=== PATIENT | male | born 1955 | race Caucasian/White ===

== ENCOUNTER 2019-08-03 12:27 | Emergency (ER) | payer OTHER ==
[2019-08-03 12:34] VITALS: BP 145/82; PULSE 76; RESP 18; TEMP 97.9
--- NOTE | 2019-08-03 12:54 | ED ---
Fall HPI - General Chief Complaint: Fall Stated Complaint: [facility] - fall Time Seen by Provider: 08/03/19 12:36 Source: patient Mode of arrival: ambulatory - History of Present Illness Initial Comments: Patient is a 63-year-old male, presenting to the emergency department after falling at work today. 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 Patient states he fell on a cement slab. This happened approximately 2 hours prior to arrival. Patient states her abdominal fall he felt okay over the past hour he's been feeling increase in pain in his left side. Patient states it extends into his back a little bit. The pain is worsened with walking as well as with turning towards the left. Patient also has pain with deep breathing. He admits to history of appendectomy, no other abdominal surgeries. He denies hitting his head, lower external knee pain. He has no other injuries reported from his fall. He has no other complaints at this time. Upon arrival to the ER, his vital signs are stable. - Related Data Allergies Allergy/AdvReac Type Severity Reaction Status Date / Time No Known Allergies Allergy Verified 08/03/19 12:34 Review of Systems ROS Statement: Those systems with pertinent positive or pertinent negative responses have been documented in the HPI. ROS Other: All systems not noted in ROS Statement are negative. Past Medical History Past Medical History: No Reported History History of Any Multi-Drug Resistant Organisms: None Reported Past Surgical History: Appendectomy Past Psychological History: No Psychological Hx Reported Smoking Status: Current every day smoker Past Alcohol Use History: Occasional Past Drug Use History: None Reported General Exam - General Exam Comments Initial Comments: GENERAL: Well-appearing, well-nourished and in no acute distress. HEAD: Atraumatic, normocephalic. EYES: Pupils equal round and reactive to light, extraocular movements intact, sclera anicteric, conjunctiva are normal. ENT: TMs normal, nares patent, oropharynx clear without exudates. Moist mucous membranes. NECK: Normal range of motion, supple without lymphadenopathy or JVD. LUNGS: Breath sounds clear to auscultation bilaterally and equal. No wheezes rales or rhonchi. Mild pain with palpation of the left flank area, left ribs. There is no bruising to the area. HEART: Regular rate and rhythm without murmurs, rubs or gallops. ABDOMEN: Mild tenderness to the left upper quadrant. Soft, normoactive bowel sounds. No guarding, no rebound. No masses appreciated. : Deferred EXTREMITIES: Normal range of motion, no pitting or edema. No clubbing or cyanosis. NEUROLOGICAL: Cranial nerves II through XII grossly intact. Normal speech, normal gait. PSYCH: Normal mood, normal affect. SKIN: Warm, Dry, normal turgor, no rashes or lesions noted. Limitations: no limitations Course Vital Signs 08/03/19 12:27 Temperature 97.9 F Pulse Rate 76 Respiratory 18 Rate Blood Pressure 145/82 O2 Sat by Pulse 98 Oximetry Medical Decision Making - Medical Decision Making Patient is a 63-year-old male presenting with left-sided flank pain as well as left-sided abdominal pain after falling 3 feet off a ladder today. He landed on cement. There was no head injury, only complaint was left sided rib as well as left flank pain. With concern for possible kidney and/or spleen injury, a computed tomography scan of the abdomen was obtained. There were no acute abnormalities seen on CT. I discussed the patient that his symptoms are most likely related to contusion of the left side of the ribs, low back. Patient has continuously denied pain medication today. He is stable for discharge at this time. Patient is in agreement with this plan of care. He will continue to take Tylenol and/or Motrin at home as needed for discomfort as well as ice the area. Strict return parameters were discussed with the patient and he verbalized understanding. Case discussed with Dr. Chairez. Disposition Clinical Impression: Fall, Contusion of rib on left side Disposition: HOME SELF-CARE Condition: Stable Instructions (If sedation given, give patient instructions): Rib Contusion (ED) Additional Instructions: Please return to the Emergency Department if symptoms worsen or any other concerns. May take Tylenol and/or Motrin for symptom relief as well as ice to the area. Practice deep breathing. Follow up with PCP as needed. Is patient prescribed a controlled substance at d/c from ED?: No Referrals: Armida Samayoa, PAC [Primary Care Provider] - 1-2 days
--- NOTE | 2019-08-03 13:31 | CT ---
EXAMINATION TYPE: CT abdomen pelvis w con DATE OF EXAM: 08/03/2019 COMPARISON: None HISTORY: Fall today with Left sided injury CT DLP: 1285.7 mGycm CONTRAST: CT scan of the abdomen and pelvis is performed without Oral Contrast and with IV Contrast, patient in jected with 100 mL of Isovue 300. FINDINGS: LUNG BASES-: No visible nodule. No infiltrate. LIVER/GB: No calcified gallstones. No space occupying hepatic lesion. Biliary tree is of normal ca liber. PANCREAS: No inflammation. No distinct mass. SPLEEN: No splenic enlargement. No lesion seen. ADRENALS: No nodule. No thickening. KIDNEYS/BLADDER: No hydronephrosis. No nephrolithiasis. No distinct renal mass. Urinary bladder g rossly unremarkable. BOWEL: Normal appendix. Normal bowel caliber. No inflammation. GENITAL ORGANS: No gross abnormality. LYMPH NODES: No greater than 1cm abdominal or pelvic lymph nodes are appreciated. AORTA: No significant abnormality. OSSEOUS STRUCTURES: No significant abnormality is seen. OTHER: No significant additional abnormality is seen. IMPRESSION: 1. No acute abnormality identified at this time.
== END 2019-08-03 13:57 | disposition home or self-care (01) ==
LOC: EC 12:27
DX: S20.212A Contusion of left front wall of thorax, initial encounter (principal); F17.200 Nicotine dependence, unspecified, uncomplicated; W11.XXXA Fall on and from ladder, initial encounter; Y92.69 Other specified industrial and construction area as the place of occurrence of the external cause; Y99.0 Civilian activity done for income or pay
CPT/HCPCS: 74177; 99283; Q9967

== ENCOUNTER 2024-07-17 06:49 | Emergency (ER) | payer OTHER, MEDICARE ==
[2024-07-17 06:53] VITALS: TEMP 98
--- NOTE | 2024-07-17 07:05 | ED ---
SOB HPI - General Chief Complaint: Shortness of Breath Stated Complaint: TJ Time Seen by Provider: 07/17/24 06:53 Source: patient, RN notes reviewed Mode of arrival: ambulatory Limitations: no limitations - History of Present Illness Initial Comments: This is a 68 year old male who presents to the emergency department for shortness of breath and coughing. Reports coughing and congestion for the last 3-4 days. When he woke up this morning he felt like it was getting hard to breathe, prompting him to come here for evaluation. The cough and shortness of breathe are not worse in different positions or making it difficult for him to sleep. The cough is relatively nonproductive. Denies any chest pain. Reports having a fever a few days ago, however states that that has since resolved. He has had multiple sick contacts at work. MD Complaint: shortness of breath, cough - Related Data Previous Rx's Medication Instructions Recorded Albuterol Sulfate [Albuterol 1 - 2 puff PO Q4-6H PRN #8.5 gm 07/17/24 Sulfate Hfa] Benzonatate [Tessalon Perle] 200 mg PO TID PRN #20 capsule 07/17/24 Promethazine/Dextromethorphan 5 ml PO Q4-6H PRN #150 ml 07/17/24 [Promethazine-Dm 6.25-15 mg/5Ml] Allergies Allergy/AdvReac Type Severity Reaction Status Date / Time No Known Allergies Allergy Verified 07/17/24 06:53 Review of Systems ROS Statement: Those systems with pertinent positive or pertinent negative responses have been documented in the HPI. ROS Other: All systems not noted in ROS Statement are negative. Past Medical History Past Medical History: No Reported History History of Any Multi-Drug Resistant Organisms: None Reported Past Surgical History: Appendectomy Past Psychological History: No Psychological Hx Reported Smoking Status: Current every day smoker Past Alcohol Use History: Occasional Past Drug Use History: None Reported General Exam Limitations: no limitations General appearance: alert, in no apparent distress Head exam: Present: atraumatic, normocephalic, normal inspection Respiratory exam: Present: normal lung sounds bilaterally. Absent: respiratory distress, wheezes, rales, rhonchi, stridor Cardiovascular Exam: Present: regular rate, normal rhythm Neurological exam: Present: alert, oriented X3, CN II-XII intact Psychiatric exam: Present: normal affect, normal mood Skin exam: Present: warm, dry, intact, normal color. Absent: rash Course Vital Signs 07/17/24 07/17/24 07/17/24 06:50 08:00 09:03 Temperature 98.0 F Pulse Rate 91 71 71 Respiratory 24 18 16 Rate Blood Pressure 147/76 138/76 130/69 O2 Sat by Pulse 95 94 L 94 L Oximetry Medical Decision Making - Medical Decision Making This is a 68-year-old male who presents to the emergency department for shortness of breath. Was pt. sent in by a medical professional or institution? @ -No Did you speak to anyone other than the patient for history? @ -No Did you review nursing and triage notes? @ -Yes, and I agree, it is accurate with regards to the patient's symptoms. Were old charts reviewed? @ -No Differential Diagnosis? @ -Differential Dyspnea: Coronary syndrome, arrhythmia, tamponade, asthma, COPD, pulmonary embolism, pneumonia, pneumothorax, pulmonary effusion, anaphylaxis, diabetic ketoacidosis, flailed chest, pulmonary contusion, diaphragmatic rupture, anemia, neuromuscular, this is not meant to be an all-inclusive list. EKG interpreted by me (3pts min.)? @ -EKG interpreted by me demonstrating the following: Sinus rhythm. Ventricular rate 72 BPM, NE interval 156 ms, QRS duration 110 ms, QTc 421 ms. X-rays interpreted by me (1pt min.)? @ -Chest x-ray obtained, my interpretation identifies no localized consolidations or infiltrates. CT interpreted by me (1pt min.)? @ -Not obtained U/S interpreted by me (1pt. min.)? @ -Not obtained What testing was considered but not performed? (CT, X-rays, U/S, labs)? Why? @ -None What meds were considered but not given? Why? @ -None Did you discuss the management of the patient with other professionals? @ -No Did you reconcile home meds? @ -No Was smoking cessation discussed for >3mins.? @ -I discussed smoking cessation for greater than 3 minutes. The risk of smoking were discussed with the patient including but not limited to risks of cancer, stroke, coronary artery disease and COPD. Also discussed with patient were multiple methods of quitting smoking. Lastly we discussed the financial cost of smoking. Was critical care preformed (if so, how long)? @ -No Were there social determinants of health that impacted care today? How? (Homelessness, low income, unemployed, alcoholism, drug addiction, transportation, low edu. Level, literacy, decrease access to med. care, [facility], rehab)? @ -No Was there de-escalation of care discussed even if they declined? (Discuss DNR or withdrawal of care, Hospice)? @ -No What co-morbidities impacted this encounter? (DM, HTN, Smoking, COPD, CAD, Cancer, CVA, Hep., AIDS, mental health diagnosis, sleep apnea, morbid obesity)? @ -Smoking Was patient admitted / discharged? @ -Discharged. Lab work demonstrates mild leukocytosis with a white blood cell count of 10.86 and is otherwise unremarkable. Patient positive for RSV. Chest x-ray reveals no acute process. Advised that treatment is largely aimed at controlling his symptoms. Prescription for Tessalon Perles, Promethazine DM cough syrup, and an albuterol inhaler provided with dosing instructions reviewed. Discussed return parameters for worsening symptoms, especially in terms of respiratory distress and chest pain. Patient discharged home in stable condition. Case discussed with ED attending Dr. Urbano. Return precautions reviewed in depth, the patient is instructed to return to the emergency department with any new, worsening, or concerning symptoms. Patient verbalized understanding. Undiagnosed new problem with uncertain prognosis? @ -None Drug Therapy requiring intensive monitoring for toxicity (Heparin, Nitro, Insulin, Cardizem)? @ -None Were any procedures done? @ -None Diagnosis/symptom? @ -RSV Acute, or Chronic, or Acute on Chronic? @ -Acute Uncomplicated (without systemic symptoms) or Complicated (systemic symptoms)? @ -Uncomplicated Side effects of treatment? @ -None Exacerbation, Progression, or Severe Exacerbation] @ -Not applicable Poses a threat to life or bodily function? @ -No - Lab Data Result diagrams: 07/17/24 07:28 07/17/24 07:28 Lab Results 07/17/24 07/17/24 07/17/24 Range/Units 07:28 07:28 07:28 WBC 10.86 H (4.50-10.00) 10*3/uL RBC 5.06 (4.40-5.60) 10*6/uL Hgb 16.2 (13.0-17.0) g/dL Hct 46.6 (39.6-50.0) % MCV 92.1 (80.0-97.0) fL MCH 32.0 (27.0-32.0) pg MCHC 34.8 (32.0-37.0) g/dL Plt Count 130 L (140-440) 10*3/uL MPV 11.8 (9.5-12.2) fL Immature Gran % (Auto) 0.5 % Neutrophils % 85.4 % Lymphocytes % 6.6 % Monocytes % 7.4 % Eosinophils % 0.0 % Basophils % 0.1 % Immature Gran # 0.05 H (0.00-0.04) 10*3/uL Neutrophils # 9.28 H (1.80-7.70) 10*3/uL Lymphocytes # 0.72 L (0.90-5.00) 10*3/uL Monocytes # 0.80 (0.20-1.00) 10*3/uL Eosinophils # 0.00 L (0.04-0.35) 10*3/uL Basophils # 0.01 (0.00-0.10) 10*3/uL Immature Plt Fraction 6.7 H (1.1-6.1) % Sodium 135 L (137-145) mmol/L Potassium 4.2 (3.5-5.1) mmol/L Chloride 103 (98-107) mmol/L Carbon Dioxide 20 L (22-30) mmol/L Anion Gap 12 mmol/L BUN 22 H (9-20) mg/dL Creatinine 0.92 (0.66-1.25) mg/dL Est GFR (CKD-EPI)AfAm >90 (>60 ml/min/1.73 sqM) Est GFR (CKD-EPI)NonAf 87 (>60 ml/min/1.73 sqM) Glucose 133 H (74-99) mg/dL Calcium 8.6 (8.4-10.2) mg/dL Total Bilirubin 1.5 H (0.2-1.3) mg/dL AST 24 (17-59) U/L ALT 16 (4-49) U/L Alkaline Phosphatase 52 (38-126) U/L Troponin I (0.000-0.034) ng/mL Total Protein 6.9 (6.3-8.2) g/dL Albumin 4.2 (3.5-5.0) g/dL Influenza Type A (PCR) Not Detected (Not Detectd) Influenza Type B (PCR) Not Detected (Not Detectd) RSV (PCR) Detected A (Not Detectd) SARS-CoV-2 (PCR) Not Detected (Not Detectd) 07/17/24 Range/Units 07:28 WBC (4.50-10.00) 10*3/uL RBC (4.40-5.60) 10*6/uL Hgb (13.0-17.0) g/dL Hct (39.6-50.0) % MCV (80.0-97.0) fL MCH (27.0-32.0) pg MCHC (32.0-37.0) g/dL Plt Count (140-440) 10*3/uL MPV (9.5-12.2) fL Immature Gran % (Auto) % Neutrophils % % Lymphocytes % % Monocytes % % Eosinophils % % Basophils % % Immature Gran # (0.00-0.04) 10*3/uL Neutrophils # (1.80-7.70) 10*3/uL Lymphocytes # (0.90-5.00) 10*3/uL Monocytes # (0.20-1.00) 10*3/uL Eosinophils # (0.04-0.35) 10*3/uL Basophils # (0.00-0.10) 10*3/uL Immature Plt Fraction (1.1-6.1) % Sodium (137-145) mmol/L Potassium (3.5-5.1) mmol/L Chloride (98-107) mmol/L Carbon Dioxide (22-30) mmol/L Anion Gap mmol/L BUN (9-20) mg/dL Creatinine (0.66-1.25) mg/dL Est GFR (CKD-EPI)AfAm (>60 ml/min/1.73 sqM) Est GFR (CKD-EPI)NonAf (>60 ml/min/1.73 sqM) Glucose (74-99) mg/dL Calcium (8.4-10.2) mg/dL Total Bilirubin (0.2-1.3) mg/dL AST (17-59) U/L ALT (4-49) U/L Alkaline Phosphatase (38-126) U/L Troponin I <0.012 (0.000-0.034) ng/mL Total Protein (6.3-8.2) g/dL Albumin (3.5-5.0) g/dL Influenza Type A (PCR) (Not Detectd) Influenza Type B (PCR) (Not Detectd) RSV (PCR) (Not Detectd) SARS-CoV-2 (PCR) (Not Detectd) - Radiology Data Radiology results: report reviewed, image reviewed Disposition Clinical Impression: RSV (respiratory syncytial virus infection), Nicotine dependence Disposition: HOME SELF-CARE Instructions (If sedation given, give patient instructions): Respiratory Syncytial Virus (ED) Additional Instructions: Return to the emergency department with any new, worsening, or concerning symptoms. Take the Tessalon Perles up to every 8 hours as needed for coughing and the promethazine DM cough syrup every 4-6 hours as needed for coughing. Use the albuterol inhaler every 4-6 hours as needed for shortness of breath. Prescriptions: Albuterol Sulfate [Albuterol Sulfate Hfa] 1 - 2 puff PO Q4-6H PRN #8.5 gm PRN Reason: Shortness Of Breath Promethazine/Dextromethorphan [Promethazine-Dm 6.25-15 mg/5Ml] 5 ml PO Q4-6H PRN #150 ml PRN Reason: Cough Benzonatate [Tessalon Perle] 200 mg PO TID PRN #20 capsule PRN Reason: Cough Is patient prescribed a controlled substance at d/c from ED?: No Referrals: Julio Corey DO [Primary Care Provider] - 1-2 days Time of Disposition: 08:52
--- NOTE | 2024-07-17 07:30 | XR ---
EXAMINATION TYPE: XR chest 2V DATE OF EXAM: 07/17/2024 7:08 AM COMPARISON: None. CLINICAL INDICATION: Male, 68 years old with history of Cough, TJ, TECHNIQUE: XR chest 2V view(s) obtained. FINDINGS: The heart size is normal. The pulmonary vasculature is normal. The lungs are clear. IMPRESSION: 1. No acute pulmonary process. [facility], , 07/17/2024 7:28 AM
[2024-07-17] MEDS: BENZONATATE 100 MG CAP PO STA (07:35)
[2024-07-17] MEDS: methylPREDNISolone SOD SUCCI 125 MG/2 ML VIAL IV STA (07:35)
[2024-07-17] MEDS: SODIUM CHLORIDE 0.9% 1,000 ML IV ONE (07:35)
[2024-07-17 07:43] LABS: Basophils # (A) 0.01 10*3/uL (0.00-0.10); Basophils % (A) 0.1 %; HCT 46.6 % (39.6-50.0); HGB 16.2 g/dL (13.0-17.0); Immature Platelet Fraction 6.7 % (1.1-6.1); Lymphocytes # (A) 0.72 10*3/uL (0.90-5.00); Lymphocytes % (A) 6.6 %; MCHC 34.8 g/dL (32.0-37.0); MCV 92.1 fL (80.0-97.0); Mean Platelet Volume 11.8 fL (9.5-12.2); Monocytes % (A) 7.4 %; Neutrophils # (A) 9.28 10*3/uL (1.80-7.70); Neutrophils % (A) 85.4 %; Platelet Count 130 10*3/uL (140-440); RBC 5.06 10*6/uL (4.40-5.60); RDW 12.8 % (11.5-14.5); WBC 10.86 10*3/uL (4.50-10.00)
[2024-07-17 08:14] LABS: Influenza A Not Detected (Not Detectd); Influenza B Not Detected (Not Detectd); RSV Detected (Not Detectd)
[2024-07-17 08:31] VITALS: PULSE 71
[2024-07-17 08:31] LABS: ALT 16 U/L (4-49); AST 24 U/L (17-59); African American GFR (CKD) >90 (>60 ml/min/1.73 sqM); Albumin 4.2 g/dL (3.5-5.0); Alkaline Phosphatase 52 U/L (38-126); Anion Gap 12 mmol/L; Blood Urea Nitrogen 22 mg/dL (9-20); Calcium 8.6 mg/dL (8.4-10.2); Carbon Dioxide 20 mmol/L (22-30); Chloride 103 mmol/L (98-107); Glucose 133 mg/dL (74-99); Non-African American GFR(CKD) 87 (>60 ml/min/1.73 sqM); Potassium 4.2 mmol/L (3.5-5.1); Sodium 135 mmol/L (137-145); Total Bilirubin 1.5 mg/dL (0.2-1.3); Total Protein 6.9 g/dL (6.3-8.2)
[2024-07-17 09:04] VITALS: BP 130/69; RESP 16
== END 2024-07-17 09:03 | disposition home or self-care (01) ==
LOC: EC 06:49
DX: R06.02 Shortness of breath (principal); R05.9 Cough, unspecified; R09.81 Nasal congestion; B97.4 Respiratory syncytial virus as the cause of diseases classified elsewhere; D72.829 Elevated white blood cell count, unspecified; F17.200 Nicotine dependence, unspecified, uncomplicated
CPT/HCPCS: 36415; 93005; 80053; 84484; 85025; 87636; 71046; 99285; 96374; 96361; 99406; J2919